=== PATIENT | female | born 1975 | race Caucasian/White ===

== ENCOUNTER → 2018-04-06 | Outpatient (CLI) | payer OTHER | END | disposition home or self-care (01) | LOC: EMPHLTH 15:18 | PROVIDERS: ATTEND Internal Medicine | DX: Z02.1 Encounter for pre-employment examination (principal) | CPT/HCPCS: 86706; 86735; 86762; 86765; 86787 ==

== ENCOUNTER 2018-06-22 19:21 | Emergency (ER) | payer OTHER ==
[~2018-06-22] VITALS: Ht 157.5 cm; Wt 65.9 kg
[2018-06-22] MEDS ORDERED: ACETAMINOPHEN 1000 MG/ISO-OSM 100 ML IV ONE (19:45)
[2018-06-22] MEDS ORDERED: METOCLOPRAMIDE HCL 5 MG/ML 2 ML VIAL IVP ONE (19:45)
[2018-06-22] MEDS ORDERED: SODIUM CHLORIDE 0.9% 1,000 ML IV ONE (19:45)
[2018-06-22] MEDS ORDERED: DiphenhydrAMINE HCL 50 MG/ML VIAL IVP ONE (19:45)
[2018-06-22] MEDS ORDERED: SODIUM CHLORIDE 0.9% 100 ML ONE (21:01)
[2018-06-22] MEDS ORDERED: IOVERSOL 350 MG/ML 100 ML VIAL ONE (21:01)
[2018-06-22 21:06] LABS: BASOPHILS % (AUTO) 1.1 % (0.0-2.0); HEMATOCRIT 35.5 % (36-46); HEMOGLOBIN 11.7 g/dL (12.0-16.0); LYMPHOCYTES # (AUTO) 1.9 K/uL (1.0-4.8); LYMPHOCYTES % (AUTO) 24.1 % (22.0-44.0); MEAN CORPUSCULAR VOLUME 82 fL (80-100); MONOCYTES # (AUTO) 0.4 K/uL (0.1-1.0); MONOCYTES % (AUTO) 5.6 % (2.0-9.0); NEUTROPHILS # (AUTO) 5.4 K/uL (1.8-7.7); NEUTROPHILS % (AUTO) 68.2 % (40.0-70.0); PLATELET COUNT (AUTO) 392 K/uL (150-450); RED BLOOD CELL COUNT(AUTO) 4.34 MIL/uL (4.00-5.20); RED CELL DISTRIBUTION WIDTH 20.3 % (11.5-14.5)
[2018-06-22 21:14] LABS: ANION GAP 10 mmol/L (8-16); CALCIUM, TOTAL 8.3 mg/dL (8.8-10.5); CARBON DIOXIDE 24 mmol/L (22-29); CHLORIDE 105 mmol/L (98-107); GLOMERULAR FILTR. RATE CALC > 60 mL/min (>60); GLUCOSE,RANDOM 88 mg/dL (70-110); POTASSIUM 4.4 mmol/L (3.5-5.1); SODIUM SERUM 139 mmol/L (136-145); UREA NITROGEN, BLOOD 14 mg/dL (7-18)
[2018-06-23 00:05] VITALS: BP 106/72
== END 2018-06-23 00:15 | disposition home or self-care (01) ==
LOC: EMS 19:21
DX: R51 Headache (principal); R11.2 Nausea with vomiting, unspecified
CPT/HCPCS: 36415; 70450; 70496; 80048; 85025; 96374; 96375; 99284; J0131; J1200; J2765; J7030; J7050; Q9967

== ENCOUNTER 2018-07-22 09:46 | Emergency (ER) | payer OTHER ==
[~2018-07-22] VITALS: Ht 160 cm; Wt 68.2 kg
[2018-07-22 11:52] VITALS: BP 134/85
== END 2018-07-22 12:13 | disposition home or self-care (01) ==
LOC: EMS 09:46
DX: S86.811A Strain of other muscle(s) and tendon(s) at lower leg level, right leg, initial encounter (principal); X50.1XXA Overexertion from prolonged static or awkward postures, initial encounter; Y93.89 Activity, other specified; Y92.89 Other specified places as the place of occurrence of the external cause; Y99.8 Other external cause status
CPT/HCPCS: 29505

== ENCOUNTER → 2018-08-23 | Outpatient (CLI) | payer OTHER | END | disposition home or self-care (01) | LOC: RADMN 13:49 | PROVIDERS: ATTEND Family Medicine Sports Medicine | DX: M25.561 Pain in right knee (principal) | CPT/HCPCS: 73721 ==